=== PATIENT | female | born 1990 | race Two or more races ===

== ENCOUNTER 2022-09-15 09:18 | Inpatient (IN) | payer BC, OTHER ==
[~2022-09-15] VITALS: Ht 157.5 cm; Wt 87.2 kg
[2022-09-15 09:59] LABS: Basophils # (auto) 0.1 10 ^3/uL (0-0.2); Basophils % (auto) 0.4 % (0.0-2.0); Eosinophils # (auto) 0 10 ^3/uL (0-0.8); Eosinophils % (auto) 0.1 % (0.0-7.0); Hematocrit 42.6 % (36.0-46.0); Hemoglobin 14.5 g/dL (12.2-16.2); Lymphocytes % (auto) 6.8 % (10.0-50.0); Mean Corpuscular Hemoglobin 29.8 pg (28.0-32.0); Mean Corpuscular Hgb Conc. 34.1 g/dL (32.0-36.0); Mean Corpuscular Volume 87.4 fL (80.0-100.0); Monocytes # (auto) 0.6 10 ^3/uL (0-1.3); Monocytes % (auto) 4.3 % (0.0-12.0); Neutrophils # (auto) 12.6 10 ^3/uL (1.6-8.6); Neutrophils % (auto) 88.4 % (37.0-80.0); Nucleated Red Blood Cells % 0.1 %; Red Blood Cells 4.88 10^6/uL (4.0-5.20); Red Cell Distribution Width 13.6 % (11.8-14.3); White Blood Cell 14.2 10^3/uL (4.4-10.8)
[2022-09-15 09:59] LABS: Urine Bacteria FEW /hpf (None Seen); Urine Blood TRACE /uL (Negative); Urine Mucus FEW (None Seen); Urine Specific Gravity 1.032 (1.001-1.035); Urine WBC 2 /hpf (0 - 5)
[2022-09-15 10:14] LABS: Albumin 3.6 g/dL (3.4-5.0); Calcium 8.8 mg/dL (8.5-10.1); Potassium 3.8 mmol/L (3.5-5.1)
[2022-09-15 10:18] LABS: BUN/Creatinine Ratio 7.4; Bilirubin, Total 0.8 mg/dL (0.2-1.0)
[2022-09-15] MEDS ORDERED: SODIUM CHLORIDE 0.9% 1,000 ML IV ONE ×2 (12:45)
[2022-09-15] MEDS ORDERED: cefTRIAXone 1GM/50ML D5W 50 ML IV ONE (13:30)
[2022-09-15] MEDS ORDERED: metroNIDAZOLE 500MG/100ML 100 ML IV ONE (13:30)
[2022-09-15] MEDS ORDERED: metroNIDAZOLE 500MG/100ML 100 ML IV SCH (17:00)
[2022-09-15] MEDS ORDERED: ACETAMINOPHEN 325 MG TAB PO PRN (17:45)
[2022-09-15] MEDS ORDERED: MORPHINE SULFATE INJ 2 MG/ml SYRG IV ONE (17:45)
[2022-09-15] MEDS ORDERED: ONDANSETRON HCL 4 MG/2 ML VIAL IV PRN (17:45)
[2022-09-15] MEDS ORDERED: DOCUSATE SOD 100 MG CAP PO PRN (17:45)
[2022-09-15] MEDS: HYDROcodone-ACET 5/325MG TAB PO PRN (19:48)
[2022-09-15 22:00] VITALS: BP 99/40
[2022-09-15] MEDS: metroNIDAZOLE 500MG/100ML 100 ML IV SCH (22:53)
[2022-09-16 05:00] VITALS: BP 90/51
[2022-09-16] MEDS: metroNIDAZOLE 500MG/100ML 100 ML IV SCH ×3 (06:07→23:04)
[2022-09-16] MEDS: HYDROcodone-ACET 5/325MG TAB PO PRN (06:10)
[2022-09-16 08:00] VITALS: BP 97/55
[2022-09-16 09:00] VITALS: BP 92/40
[2022-09-16] MEDS: cefTRIAXone 1GM/50ML D5W 50 ML IV SCH (10:28)
[2022-09-16] MEDS: PANTOPRAZOLE 40 MG/10 ML VIAL INJ IV SCH (10:28)
[2022-09-16] MEDS ORDERED: MORPHINE SULFATE INJ 2 MG/ml SYRG IV PRN (11:30)
[2022-09-16] MEDS ORDERED: SODIUM CHLORIDE 0.9% 500 ML IV ONE (11:45)
[2022-09-16 13:00] VITALS: BP 89/64
[2022-09-16] MEDS: NAPROXEN 500 MG TAB PO PRN (15:26)
[2022-09-16] MEDS: SODIUM CHLORIDE 0.9% 1,000 ML IV SCH ×2 (19:01→19:02)
[2022-09-16 20:00] VITALS: BP 97/55
[2022-09-16 22:00] VITALS: BP 107/55
[2022-09-17] MEDS: SODIUM CHLORIDE 0.9% 1,000 ML IV SCH ×4 (00:50→20:50)
[2022-09-17] MEDS: NAPROXEN 500 MG TAB PO PRN (03:41)
[2022-09-17 05:00] VITALS: BP_SYST 141; BP_SYST 94; BP_DIAS 55; BP_DIAS 71
[2022-09-17 05:37] VITALS: BP 101/55
[2022-09-17] MEDS: metroNIDAZOLE 500MG/100ML 100 ML IV SCH ×3 (06:03→21:21)
[2022-09-17 06:35] LABS: Basophils # (auto) 0 10 ^3/uL (0-0.2); Basophils % (auto) 0.3 % (0.0-2.0); Eosinophils # (auto) 0.2 10 ^3/uL (0-0.8); Eosinophils % (auto) 2.5 % (0.0-7.0); Hematocrit 36.1 % (36.0-46.0); Hemoglobin 12.1 g/dL (12.2-16.2); Lymphocytes # (auto) 2.8 10 ^3/uL (0.4-5.4); Lymphocytes % (auto) 41.4 % (10.0-50.0); Mean Corpuscular Hemoglobin 29.5 pg (28.0-32.0); Mean Corpuscular Hgb Conc. 33.4 g/dL (32.0-36.0); Mean Corpuscular Volume 88.3 fL (80.0-100.0); Monocytes # (auto) 0.7 10 ^3/uL (0-1.3); Monocytes % (auto) 10.4 % (0.0-12.0); Neutrophils # (auto) 3.1 10 ^3/uL (1.6-8.6); Neutrophils % (auto) 45.4 % (37.0-80.0); Nucleated Red Blood Cells % 0.1 %; Red Blood Cells 4.09 10^6/uL (4.0-5.20); Red Cell Distribution Width 13.4 % (11.8-14.3); White Blood Cell 6.8 10^3/uL (4.4-10.8)
[2022-09-17 06:42] LABS: Calcium 8.1 mg/dL (8.5-10.1)
[2022-09-17 06:47] LABS: BUN/Creatinine Ratio 7.9; Bilirubin, Total 0.3 mg/dL (0.2-1.0); Total Protein 5.7 g/dL (6.4-8.2)
[2022-09-17 07:30] LABS: Potassium 3.9 mmol/L (3.5-5.1)
[2022-09-17 09:00] VITALS: BP 127/61
[2022-09-17] MEDS ORDERED: POLYETHYLENE GLYCOL 17 GM PWDR PO PRN (09:30)
[2022-09-17] MEDS ORDERED: POLYETHYLENE GLYCOL 17 GM PWDR PO ONE (09:30)
[2022-09-17] MEDS: cefTRIAXone 1GM/50ML D5W 50 ML IV SCH (10:06)
[2022-09-17] MEDS: PANTOPRAZOLE 40 MG/10 ML VIAL INJ IV SCH (10:06)
[2022-09-17] MEDS: NAPROXEN 500 MG TAB PO SCH ×2 (12:57→21:20)
[2022-09-17 13:00] VITALS: BP 102/51
[2022-09-17 16:40] VITALS: BP 123/70
[2022-09-17 22:00] VITALS: BP 107/60
[2022-09-18] MEDS: SODIUM CHLORIDE 0.9% 1,000 ML IV SCH ×4 (04:30→23:30)
[2022-09-18 05:00] VITALS: BP 111/64
[2022-09-18 06:12] LABS: Basophils # (auto) 0 10 ^3/uL (0-0.2); Basophils % (auto) 0.4 % (0.0-2.0); Eosinophils # (auto) 0.2 10 ^3/uL (0-0.8); Eosinophils % (auto) 2.2 % (0.0-7.0); Hematocrit 34.9 % (36.0-46.0); Hemoglobin 11.9 g/dL (12.2-16.2); Lymphocytes # (auto) 3.4 10 ^3/uL (0.4-5.4); Lymphocytes % (auto) 46.6 % (10.0-50.0); Mean Corpuscular Hemoglobin 29.8 pg (28.0-32.0); Mean Corpuscular Volume 87.4 fL (80.0-100.0); Monocytes # (auto) 0.8 10 ^3/uL (0-1.3); Monocytes % (auto) 10.4 % (0.0-12.0); Neutrophils # (auto) 2.9 10 ^3/uL (1.6-8.6); Neutrophils % (auto) 40.4 % (37.0-80.0); Nucleated Red Blood Cells % 0.1 %; Red Cell Distribution Width 13.4 % (11.8-14.3); White Blood Cell 7.3 10^3/uL (4.4-10.8)
[2022-09-18 06:20] LABS: Albumin 2.8 g/dL (3.4-5.0); Calcium 8.1 mg/dL (8.5-10.1); Potassium 3.5 mmol/L (3.5-5.1)
[2022-09-18 06:23] LABS: Bilirubin, Total 0.4 mg/dL (0.2-1.0); Total Protein 5.9 g/dL (6.4-8.2)
[2022-09-18] MEDS: metroNIDAZOLE 500MG/100ML 100 ML IV SCH ×3 (06:24→21:21)
[2022-09-18 08:04] LABS: INR 1.13 (0.9-1.15)
[2022-09-18 09:00] VITALS: BP 105/54
[2022-09-18] MEDS ORDERED: FLEET ENEMA(ADULT) 135 ML PR ONE ×2 (09:00→12:00)
[2022-09-18] MEDS: PANTOPRAZOLE 40 MG TAB PO SCH (09:02)
[2022-09-18] MEDS: NAPROXEN 500 MG TAB PO SCH ×2 (09:02→21:22)
[2022-09-18] MEDS: cefTRIAXone 1GM/50ML D5W 50 ML IV SCH (09:02)
[2022-09-18] MEDS: fentaNYL CITRATE 100 MCG/2 ML VL ONE ×3 (10:36→10:47)
[2022-09-18] MEDS: MIDAZOLAM HCL 2MG/2ML 2ml VIAL (1mg/ml) ONE ×3 (10:36→10:47)
[2022-09-18] MEDS: diphenhdrAMINE HCL 50 MG/1 ML VL ONE ×2 (10:36→10:39)
[2022-09-18 13:15] VITALS: BP 111/60
[2022-09-18] MEDS ORDERED: MESALAMINE 400mg Delayed Release Cap PO SCH (14:00)
[2022-09-18 16:58] VITALS: BP 102/60
[2022-09-18] MEDS: methylPREDNISolone SOD SUCC 40 MG/ML VL IV SCH (21:21)
[2022-09-18] MEDS: MESALAMINE 400mg Delayed Release Cap PO SCH (21:22)
[2022-09-18 22:00] VITALS: BP 110/68
[2022-09-18] MEDS ORDERED: methylPREDNISolone SOD SUCC 40 MG/ML VL IV SCH (22:00)
[2022-09-18] MEDS ORDERED: TEMAZEPAM 15 MG CAP PO ONE (22:45)
[2022-09-19 05:00] VITALS: BP 111/68
[2022-09-19] MEDS: metroNIDAZOLE 500MG/100ML 100 ML IV SCH ×3 (05:40→21:35)
[2022-09-19] MEDS: MESALAMINE 400mg Delayed Release Cap PO SCH ×3 (05:40→21:35)
[2022-09-19] MEDS: SODIUM CHLORIDE 0.9% 1,000 ML IV SCH (06:10)
[2022-09-19 06:21] LABS: Basophils # (auto) 0 10 ^3/uL (0-0.2); Basophils % (auto) 0.1 % (0.0-2.0); Eosinophils # (auto) 0 10 ^3/uL (0-0.8); Hematocrit 39.4 % (36.0-46.0); Hemoglobin 13.7 g/dL (12.2-16.2); Lymphocytes # (auto) 1.4 10 ^3/uL (0.4-5.4); Lymphocytes % (auto) 18.6 % (10.0-50.0); Mean Corpuscular Hemoglobin 29.9 pg (28.0-32.0); Mean Corpuscular Hgb Conc. 34.7 g/dL (32.0-36.0); Mean Corpuscular Volume 86.3 fL (80.0-100.0); Monocytes # (auto) 0.2 10 ^3/uL (0-1.3); Monocytes % (auto) 2.4 % (0.0-12.0); Neutrophils # (auto) 6.1 10 ^3/uL (1.6-8.6); Neutrophils % (auto) 78.9 % (37.0-80.0); Nucleated Red Blood Cells % 0.1 %; Red Blood Cells 4.57 10^6/uL (4.0-5.20); Red Cell Distribution Width 13.2 % (11.8-14.3); White Blood Cell 7.7 10^3/uL (4.4-10.8)
[2022-09-19 06:35] LABS: Potassium 4.1 mmol/L (3.5-5.1)
[2022-09-19 06:46] LABS: Albumin 3.3 g/dL (3.4-5.0); BUN/Creatinine Ratio 10.8; Bilirubin, Total 0.4 mg/dL (0.2-1.0); Calcium 8.7 mg/dL (8.5-10.1)
[2022-09-19] MEDS: HYDROcodone-ACET 5/325MG TAB PO PRN (07:43)
[2022-09-19 09:00] VITALS: BP 106/66
[2022-09-19] MEDS: PANTOPRAZOLE 40 MG TAB PO SCH (09:34)
[2022-09-19] MEDS: NAPROXEN 500 MG TAB PO SCH (09:34)
[2022-09-19] MEDS: cefTRIAXone 1GM/50ML D5W 50 ML IV SCH (09:35)
[2022-09-19] MEDS: methylPREDNISolone SOD SUCC 40 MG/ML VL IV SCH ×2 (09:35→21:35)
[2022-09-19] MEDS ORDERED: ZOLPIDEM TARTRATE 5 MG TAB PO PRN (11:30)
[2022-09-19 13:00] VITALS: BP 118/71
[2022-09-19 17:10] VITALS: BP 110/66
[2022-09-19 22:00] VITALS: BP 111/56
[2022-09-20 05:00] VITALS: BP 100/63
[2022-09-20] MEDS: metroNIDAZOLE 500MG/100ML 100 ML IV SCH ×3 (05:43→20:48)
[2022-09-20] MEDS: MESALAMINE 400mg Delayed Release Cap PO SCH ×3 (05:43→20:48)
[2022-09-20 06:25] LABS: Basophils # (auto) 0 10 ^3/uL (0-0.2); Basophils % (auto) 0.2 % (0.0-2.0); Eosinophils # (auto) 0 10 ^3/uL (0-0.8); Hematocrit 39.5 % (36.0-46.0); Hemoglobin 13.5 g/dL (12.2-16.2); Lymphocytes # (auto) 1.9 10 ^3/uL (0.4-5.4); Lymphocytes % (auto) 8.1 % (10.0-50.0); Mean Corpuscular Hemoglobin 29.6 pg (28.0-32.0); Mean Corpuscular Volume 86.8 fL (80.0-100.0); Monocytes # (auto) 0.5 10 ^3/uL (0-1.3); Monocytes % (auto) 2.2 % (0.0-12.0); Neutrophils # (auto) 20.6 10 ^3/uL (1.6-8.6); Neutrophils % (auto) 89.5 % (37.0-80.0); Red Blood Cells 4.55 10^6/uL (4.0-5.20); Red Cell Distribution Width 13.6 % (11.8-14.3)
[2022-09-20] MEDS: traMADol HCL 50 MG TAB PO PRN ×2 (06:26→16:56)
[2022-09-20 06:46] LABS: Albumin 3.4 g/dL (3.4-5.0); Calcium 8.9 mg/dL (8.5-10.1); Potassium 3.9 mmol/L (3.5-5.1)
[2022-09-20 06:50] LABS: BUN/Creatinine Ratio 10.1; Bilirubin, Total 0.4 mg/dL (0.2-1.0); CRP High Sensitivity 0.47 mg/dL (< 0.3)
[2022-09-20 08:00] VITALS: BP 111/56
[2022-09-20] MEDS: cefTRIAXone 1GM/50ML D5W 50 ML IV SCH (08:35)
[2022-09-20 09:00] VITALS: BP 111/56
[2022-09-20] MEDS: methylPREDNISolone SOD SUCC 40 MG/ML VL IV SCH (09:47)
[2022-09-20] MEDS: PANTOPRAZOLE 40 MG TAB PO SCH (09:48)
[2022-09-20] MEDS ORDERED: predniSONE 20 MG TAB PO ONE (10:15)
[2022-09-20] MEDS: ACETAMINOPHEN 500 MG TAB PO SCH (11:48)
[2022-09-20 13:00] VITALS: BP 122/75
[2022-09-20 16:02] VITALS: BP 111/61
[2022-09-20] MEDS: MORPHINE SULFATE INJ 2 MG/ml SYRG IV PRN (20:47)
[2022-09-20 22:00] VITALS: BP 113/54
[2022-09-21] MEDS ORDERED: DROS1TAB19 PO (02:57)
[2022-09-21] MEDS ORDERED: DROS1TAB5 PO (03:09)
[2022-09-21] MEDS: MORPHINE SULFATE INJ 2 MG/ml SYRG IV PRN (03:55)
[2022-09-21] MEDS: metroNIDAZOLE 500MG/100ML 100 ML IV SCH ×2 (03:57→15:31)
[2022-09-21] MEDS: MESALAMINE 400mg Delayed Release Cap PO SCH ×2 (03:57→15:28)
[2022-09-21 05:00] VITALS: BP 111/57
[2022-09-21 06:29] LABS: Basophils # (auto) 0 10 ^3/uL (0-0.2); Basophils % (auto) 0.1 % (0.0-2.0); Eosinophils # (auto) 0 10 ^3/uL (0-0.8); Eosinophils % (auto) 0.1 % (0.0-7.0); Hematocrit 36.2 % (36.0-46.0); Hemoglobin 12.3 g/dL (12.2-16.2); Lymphocytes # (auto) 3.2 10 ^3/uL (0.4-5.4); Lymphocytes % (auto) 15.2 % (10.0-50.0); Mean Corpuscular Hemoglobin 29.5 pg (28.0-32.0); Mean Corpuscular Hgb Conc. 34.1 g/dL (32.0-36.0); Mean Corpuscular Volume 86.4 fL (80.0-100.0); Monocytes # (auto) 1.3 10 ^3/uL (0-1.3); Monocytes % (auto) 6.1 % (0.0-12.0); Neutrophils # (auto) 16.6 10 ^3/uL (1.6-8.6); Neutrophils % (auto) 78.5 % (37.0-80.0); Nucleated Red Blood Cells % 0.1 %; Red Blood Cells 4.19 10^6/uL (4.0-5.20); White Blood Cell 21.2 10^3/uL (4.4-10.8)
[2022-09-21 06:47] LABS: Albumin 3.1 g/dL (3.4-5.0); Calcium 8.5 mg/dL (8.5-10.1); Potassium 3.9 mmol/L (3.5-5.1)
[2022-09-21 06:51] LABS: Bilirubin, Total 0.3 mg/dL (0.2-1.0); Total Protein 5.9 g/dL (6.4-8.2)
[2022-09-21 08:20] VITALS: BP 118/75
[2022-09-21 09:00] VITALS: BP 118/75
[2022-09-21] MEDS: PANTOPRAZOLE 40 MG TAB PO SCH (09:35)
[2022-09-21] MEDS: cefTRIAXone 1GM/50ML D5W 50 ML IV SCH (09:36)
[2022-09-21] MEDS ORDERED: traMADol HCL 50 MG TAB PO ONE (09:45)
[2022-09-21] MEDS ORDERED: predniSONE 20 MG TAB PO SCH (10:00)
[2022-09-21] MEDS ORDERED: MESA400C PO (11:00)
[2022-09-21] MEDS ORDERED: METH4PAK PO (11:00)
[2022-09-21] MEDS ORDERED: MESA400C OR (11:03)
[2022-09-21] MEDS ORDERED: METR500T14 PO (11:08)
[2022-09-21] MEDS ORDERED: CIP500T GT (11:08)
[2022-09-21] MEDS: ACETAMINOPHEN 500 MG TAB PO SCH (11:45)
[2022-09-21 13:00] VITALS: BP 108/69
[2022-09-21 17:00] VITALS: BP 109/55
== END 2022-09-21 19:00 | disposition home or self-care (01) | DRG 387 ==
LOC: ER 09:18 → OVERFLOW 17:33 → CENTRAL 21:27
PROVIDERS: ADMIT Internal Medicine; ATTEND Student in an Organized Health Care Education/Training Program
PROC: 0DBE8ZX Excision of Large Intestine, Via Natural or Artificial Opening Endoscopic, Diagnostic (ICD-10-PCS; 2022-09-18)
PROC: 0DBB8ZX Excision of Ileum, Via Natural or Artificial Opening Endoscopic, Diagnostic (ICD-10-PCS; principal; 2022-09-18 10:30)
DX: K51.90 Ulcerative colitis, unspecified, without complications (principal); K52.9 Noninfective gastroenteritis and colitis, unspecified; N92.1 Excessive and frequent menstruation with irregular cycle; E66.9 Obesity, unspecified; E28.2 Polycystic ovarian syndrome; T38.0X5A Adverse effect of glucocorticoids and synthetic analogues, initial encounter; Z20.822 Contact with and (suspected) exposure to COVID-19; N80.9 Endometriosis, unspecified; Y92.89 Other specified places as the place of occurrence of the external cause; Z83.3 Family history of diabetes mellitus; Z68.35 Body mass index [BMI] 35.0-35.9, adult
CPT/HCPCS: 36415; 45380; 74176; 76830; 76856; 80053; 81001; 81025; 82270; 83605; 84702; 85025; 85048; 85610; 85652; 85730; 86141; 87040; 87045; 87426; 87427; 87493; 96361; 96365; 96368; 96375; C9113; G0378; J0696; J2250; J2405; J3490

== ENCOUNTER 2025-07-20 08:39 | Emergency (ER) | payer SELFPAY ==
[~2025-07-20] VITALS: Ht 157.5 cm; Wt 86.1 kg
[~2025-07-20 08:39] MED LIST: CIP500T GT; DROS1TAB5 PO; MESA400C OR; MESA400C PO; METH4PAK PO; METR-344 PO
[2025-07-20 10:04] VITALS: BP 109/50; PULSE 67; RESP 16; TEMP 98.3; O2SAT 99
[2025-07-20 12:28] LABS: Urine Protein, UAD Negative (Negative)
== END 2025-07-20 12:13 | disposition left against medical advice (07) ==
LOC: ER 08:39
DX: R10.20 Pelvic and perineal pain unspecified side (principal)
CPT/HCPCS: 81001